=== PATIENT | male | born 1980 ===

== ENCOUNTER 2023-10-01 04:09 | Day surgery (SDC) | payer OTHER ==
[2023-09-30 15:02] VITALS: BMI 38.4
[2023-10-01] MEDS ORDERED: DEXAMETHASONE SOD PHOSPHATE 10 MG/1 ML VIAL ONE (07:27)
[2023-10-01] MEDS ORDERED: LIDOCAINE HCL/PF 1% SDV 5ML VIAL ONE (07:27)
[2023-10-01 08:25] VITALS: PULSE 82
[2023-10-01] MEDS: DEXAMETHASONE SOD PHOSPHATE 20 MG/5 ML VIAL IM ONE (09:39)
[2023-10-01] MEDS: LIDOCAINE 1% P/F 10 MG/ML VIAL INF ONE (09:40)
[2023-10-01] MEDS: IOHEXOL 180 MG/1 ML ML IJ ONE (09:41)
[2023-10-01] MEDS ORDERED: ACETAMINOPHEN 500 MG TABLET (FP) ONE (10:01)
[2023-10-01] MEDS: ACETAMINOPHEN 500 MG TABLET (FP) PO PRN (10:03)
[2023-10-01 10:05] VITALS: BP 140/80; RESP 18; TEMP 97.1
== END 2023-10-01 10:11 | disposition home or self-care (01) ==
LOC: JASU-SURG 04:09
PROVIDERS: ATTEND Pain Medicine Pain Medicine
PROC: 3E0R3BZ Introduction of Anesthetic Agent into Spinal Canal, Percutaneous Approach (ICD-10-PCS; 2023-10-01)
PROC: 3E0R33Z Introduction of Anti-inflammatory into Spinal Canal, Percutaneous Approach (ICD-10-PCS; principal; 2023-10-01 09:45)
DX: M54.12 Radiculopathy, cervical region (principal)
CPT/HCPCS: 76000-TC-FY; J1100

== ENCOUNTER 2023-11-04 06:22 | Day surgery (SDC) | payer OTHER ==
[2023-11-03 09:05] VITALS: BMI 39.9
[2023-11-04] MEDS ORDERED: LIDOCAINE HCL/PF 1% SDV 5ML VIAL ONE ×2 (07:26→07:34)
[2023-11-04] MEDS ORDERED: DEXAMETHASONE SOD PHOSPHATE 10 MG/1 ML VIAL ONE (07:34)
[2023-11-04] MEDS ORDERED: ACETAMINOPHEN 500 MG TABLET (FP) PO PRN (11:26)
[2023-11-04] MEDS: LIDOCAINE HCL 1% PRESERVATIVE FREE - 30ML VIAL IJ ONE (11:28)
[2023-11-04] MEDS: IOHEXOL 180 MG/1 ML ML IJ ONE ×2 (11:29)
[2023-11-04] MEDS: DEXAMETHASONE SOD PHOSPHATE 10 MG/1 ML VIAL IVPUSH ONE (11:29)
[2023-11-04 12:17] VITALS: BP 153/100; PULSE 100; RESP 20; TEMP 97.3
== END 2023-11-04 12:22 | disposition home or self-care (01) ==
LOC: JASU-SURG 06:22
PROVIDERS: ATTEND Pain Medicine Pain Medicine
PROC: 3E0R3BZ Introduction of Anesthetic Agent into Spinal Canal, Percutaneous Approach (ICD-10-PCS; 2023-11-04)
PROC: 3E0R33Z Introduction of Anti-inflammatory into Spinal Canal, Percutaneous Approach (ICD-10-PCS; principal; 2023-11-04 11:00)
DX: M54.12 Radiculopathy, cervical region (principal)
CPT/HCPCS: 76000-TC-FY; J1100